=== PATIENT | female | born 1935 | race Caucasian/White ===

== ENCOUNTER 2021-08-05 02:07 | Emergency (ER) | payer OTHER, SELFPAY ==
[~2021-08-05] VITALS: Ht 167.6 cm; Wt 54.4 kg
[2021-08-05 02:07] VITALS: BP_SYST 147
[2021-08-05] MEDS ORDERED: ACETAMINOPHEN 500 MG TABLET PO ONE (02:30)
[2021-08-05] MEDS ORDERED: cephALEXin 500 MG CAPSULE PO ONE (05:45)
[2021-08-05] MEDS ORDERED: CEPH500C2 PO (05:59)
[2021-08-05 06:42] VITALS: BP_SYST 99
[2021-08-05 07:39] LABS: BILIRUBIN,URINE NEGATIVE (NEGATIVE); CLARITY/URINE SL CLOUDY (CLEAR); COLOR,URINE YELLOW (YELLOW); GLUCOSE,URINE NEGATIVE (NEGATIVE); KETONES,URINE NEGATIVE (NEGATIVE); LEUKOCYTE ESTERASE ,URINE 3+ (NEGATIVE); NITRITE, URINE POSITIVE (NEGATIVE); PROTEIN URINE TRACE (NEGATIVE); UROBILINOGEN,URINE 0.2 (0.2-1.0)
[2021-08-05 07:59] LABS: BLOOD, URINE TRACE (NEGATIVE)
[2021-08-05 09:02] LABS: BACTERIA,URINE FEW /HPF (None Seen); URINE AMORPHOUS URATE 2+ /HPF (None Seen); WBC,URINE 20-50 /HPF (0-3)
== END 2021-08-05 06:41 | disposition home or self-care (01) ==
LOC: SED 02:07
DX: S09.90XA Unspecified injury of head, initial encounter (principal); M25.551 Pain in right hip; M25.552 Pain in left hip; Z79.899 Other long term (current) drug therapy; Z20.822 Contact with and (suspected) exposure to COVID-19; W01.0XXA Fall on same level from slipping, tripping and stumbling without subsequent striking against object, initial encounter; Y93.89 Activity, other specified; Y92.89 Other specified places as the place of occurrence of the external cause; Y99.8 Other external cause status
CPT/HCPCS: 36415; 70450-TC; 72192-TC; 73590-TC; 76376; 81000; 87086; 99285

== ENCOUNTER 2021-09-09 16:18 | Inpatient (IN) | payer OTHER, SELFPAY ==
[~2021-09-09] VITALS: Ht 180.3 cm; Wt 45.8 kg
[~2021-09-09 16:18] MED LIST: CEPH-548 PO
[2021-09-09 16:25] VITALS: BP_SYST 166
[2021-09-09] MEDS ORDERED: DONE10TA4 PO (16:35)
[2021-09-09] MEDS ORDERED: DIVA125T2 PO (16:35)
[2021-09-09] MEDS ORDERED: MIRT-115 PO (16:39)
[2021-09-09] MEDS ORDERED: LISI40TA15 PO (16:39)
[2021-09-09] MEDS ORDERED: LORA0.5T PO (16:39)
[2021-09-09 17:30] LABS: ANION GAP 6 (5-15); CALCIUM 8.9 mg/dL (8.4-11.0); CHLORIDE 102 mmol/L (98-107); CREATININE 0.82 mg/dL (0.55-1.30); GLUCOSE 92 mg/dL (70-99); POTASSIUM 4.4 mmol/L (3.5-5.1); SODIUM SERUM 136 mmol/L (136-145); UREA NITROGEN, BLOOD 25 mg/dL (8-21)
[2021-09-09 17:36] LABS: ALBUMIN 3.5 g/dL (3.4-4.8); ASPARTATE AMINOTRANSFERASE 16 U/L (10-37); LACTATE DEHYDROGENASE 160 U/L (81-234); PROTHROMBIN TIME 10.9 SECS (9.5-12.5); TOTAL BILIRUBIN 0.6 mg/dL (0.0-1.0)
[2021-09-09 17:45] LABS: BASOPHILS % (AUTO) 0.6 % (0.0-2.0); EOSINOPHILS # (AUTO) 0.1 K/uL (0.0-0.4); EOSINOPHILS % (AUTO) 0.8 % (0.0-4.0); HEMATOCRIT 39.3 % (36-48); HEMOGLOBIN 13.4 g/dL (12.0-16.0); LYMPHOCYTES # (AUTO) 1.5 K/uL (1.0-5.5); LYMPHOCYTES % (AUTO) 23.4 % (20.5-51.5); MEAN CORPUSCULAR HEMOGLOBIN 31 pg (27-31); MEAN CORPUSCULAR HGB CONC 34 % (32-36); MEAN CORPUSCULAR VOLUME 91 fL (79.0-98.0); MONOCYTES # (AUTO) 0.6 K/uL (0.0-1.0); MONOCYTES % (AUTO) 10.4 % (1.7-9.3); NEUTROPHILS % (AUTO) 64.8 % (40.0-70.0); PLATELET COUNT (AUTO) 176 K/uL (130-430); RED CELL DISTRIBUTION WIDTH 14.5 % (9.0-15.0); WHITE BLOOD COUNT (AUTO) 6.2 K/uL (4.8-10.8)
[2021-09-09 17:48] LABS: C-REACTIVE PROTEIN QUANT 3.3 mg/dL (0-0.5)
[2021-09-09 17:53] LABS: ALANINE AMINOTRANSFERASE 19 U/L (12-78)
[2021-09-09 18:23] LABS: BILIRUBIN,URINE NEGATIVE (NEGATIVE); BLOOD, URINE 2+ (NEGATIVE); CLARITY/URINE CLOUDY (CLEAR); COLOR,URINE YELLOW (YELLOW); GLUCOSE,URINE NEGATIVE (NEGATIVE); KETONES,URINE NEGATIVE (NEGATIVE); LEUKOCYTE ESTERASE ,URINE 2+ (NEGATIVE); NITRITE, URINE POSITIVE (NEGATIVE); PROTEIN URINE NEGATIVE (NEGATIVE); UROBILINOGEN,URINE 0.2 (0.2-1.0)
[2021-09-09 18:35] LABS: BACTERIA,URINE MANY /HPF (None Seen); MUCUS,URINE 1+ /LPF (None Seen); WBC,URINE 80-100 /HPF (0-3)
[2021-09-09] MEDS ORDERED: NACL 0.9% 1,000 ML IV ONE (20:00)
[2021-09-09] MEDS ORDERED: OSELTAMIVIR PHOSPHATE 75 MG CAPSULE PO ONE (20:00)
[2021-09-09] MEDS ORDERED: cefTRIAXone 1 GM in D5W 50 ML IV ONE (20:00)
[2021-09-09] MEDS ORDERED: cefTRIAXone 1 GM VIAL ONE (20:04)
[2021-09-09] MEDS ORDERED: CIPROFLOXACIN HCL 500 MG TABLET PO ONE (20:45)
[2021-09-09] MEDS ORDERED: D5LR 500 ML IV ONE (20:45)
[2021-09-09] MEDS ORDERED: ACETAMINOPHEN 325 MG TABLET PO PRN (21:15)
[2021-09-09] MEDS ORDERED: ENOXAPARIN SODIUM 40 MG/0.4 ML SYRINGE SUBCUT ONE (21:15)
[2021-09-09 22:54] VITALS: BP_SYST 131
[2021-09-10] MEDS: DIPHENHYDRAMINE INJ 50 MG/ML VIAL IVP PRN ×2 (00:40→21:42)
[2021-09-10 03:20] VITALS: BP_SYST 135
[2021-09-10 06:36] LABS: EOSINOPHILS % (AUTO) 0.3 % (0.0-4.0); HEMATOCRIT 42.8 % (36-48); HEMOGLOBIN 14.4 g/dL (12.0-16.0); LYMPHOCYTES # (AUTO) 1.8 K/uL (1.0-5.5); LYMPHOCYTES % (AUTO) 26.6 % (20.5-51.5); MEAN CORPUSCULAR HEMOGLOBIN 31 pg (27-31); MEAN CORPUSCULAR HGB CONC 34 % (32-36); MEAN CORPUSCULAR VOLUME 91 fL (79.0-98.0); MONOCYTES # (AUTO) 0.8 K/uL (0.0-1.0); MONOCYTES % (AUTO) 12.3 % (1.7-9.3); PLATELET COUNT (AUTO) 179 K/uL (130-430); RED CELL DISTRIBUTION WIDTH 14.2 % (9.0-15.0); WHITE BLOOD COUNT (AUTO) 6.7 K/uL (4.8-10.8)
[2021-09-10 07:08] LABS: ANION GAP 6 (5-15); CALCIUM 9.1 mg/dL (8.4-11.0); CHLORIDE 101 mmol/L (98-107); GLUCOSE 100 mg/dL (70-99); POTASSIUM 4.2 mmol/L (3.5-5.1); SODIUM SERUM 136 mmol/L (136-145); UREA NITROGEN, BLOOD 20 mg/dL (8-21)
[2021-09-10 07:33] LABS: BASOPHILS % (AUTO) 0.3 % (0.0-2.0); NEUTROPHILS # (AUTO) 4.1 K/uL (1.8-7.7); NEUTROPHILS % (AUTO) 60.5 % (40.0-70.0)
[2021-09-10] MEDS: OSELTAMIVIR PHOSPHATE 75 MG CAPSULE PO SCH ×2 (08:42→21:41)
[2021-09-10] MEDS: lisinopriL 20 MG TABLET PO SCH (08:42)
[2021-09-10] MEDS: MIRTAZAPINE 15 MG TABLET PO SCH (08:42)
[2021-09-10] MEDS: LORazepam 1 MG TABLET PO SCH ×2 (08:43→21:44)
[2021-09-10] MEDS: DIVALPROEX SODIUM 125 MG CAP.(DEPAKOTE SPRINKLE) PO SCH (08:43)
[2021-09-10 12:59] VITALS: BP_SYST 147
[2021-09-10 16:34] VITALS: BP_SYST 139
[2021-09-10] MEDS: QUEtiapine FUMARATE 25 MG TABLET PO SCH (17:19)
[2021-09-10 20:00] VITALS: BP_SYST 128; BP_SYST 132
[2021-09-10] MEDS: cefTRIAXone 1 GM IVPB PREMIX 50 ML IV SCH (21:40)
[2021-09-10] MEDS: DONEPEZIL HCL 5 MG TABLET (ARICEPT) PO SCH (21:41)
[2021-09-10] MEDS: ENOXAPARIN SODIUM 40 MG/0.4 ML SYRINGE SUBCUT SCH (21:43)
[2021-09-11] MEDS: DIPHENHYDRAMINE INJ 50 MG/ML VIAL IVP PRN ×2 (03:15→22:54)
[2021-09-11 07:55] LABS: EOSINOPHILS % (AUTO) 0.4 % (0.0-4.0); HEMATOCRIT 39.5 % (36-48); HEMOGLOBIN 13.2 g/dL (12.0-16.0); LYMPHOCYTES # (AUTO) 0.7 K/uL (1.0-5.5); LYMPHOCYTES % (AUTO) 16.8 % (20.5-51.5); MEAN CORPUSCULAR HEMOGLOBIN 31 pg (27-31); MEAN CORPUSCULAR HGB CONC 34 % (32-36); MEAN CORPUSCULAR VOLUME 91 fL (79.0-98.0); MONOCYTES # (AUTO) 0.5 K/uL (0.0-1.0); MONOCYTES % (AUTO) 10.2 % (1.7-9.3); NEUTROPHILS # (AUTO) 3.2 K/uL (1.8-7.7); NEUTROPHILS % (AUTO) 71.6 % (40.0-70.0); PLATELET COUNT (AUTO) 172 K/uL (130-430); RED BLOOD CELL COUNT(AUTO) 4.34 MIL/uL (4.2-6.2); WHITE BLOOD COUNT (AUTO) 4.5 K/uL (4.8-10.8)
[2021-09-11 08:43] VITALS: BP_SYST 164
[2021-09-11] MEDS: MIRTAZAPINE 15 MG TABLET PO SCH (09:06)
[2021-09-11] MEDS: LORazepam 1 MG TABLET PO SCH ×2 (09:06→21:04)
[2021-09-11] MEDS: OSELTAMIVIR PHOSPHATE 75 MG CAPSULE PO SCH ×2 (09:06→21:04)
[2021-09-11] MEDS: lisinopriL 20 MG TABLET PO SCH (09:06)
[2021-09-11] MEDS: DIVALPROEX SODIUM 125 MG CAP.(DEPAKOTE SPRINKLE) PO SCH (09:07)
[2021-09-11 09:45] LABS: ANION GAP 4 (5-15); CALCIUM 8.5 mg/dL (8.4-11.0); CHLORIDE 103 mmol/L (98-107); CREATININE 0.77 mg/dL (0.55-1.30); GLUCOSE 110 mg/dL (70-99); POTASSIUM 3.7 mmol/L (3.5-5.1); SODIUM SERUM 137 mmol/L (136-145); UREA NITROGEN, BLOOD 22 mg/dL (8-21)
[2021-09-11 12:00] VITALS: BP_SYST 145
[2021-09-11 16:25] VITALS: BP_SYST 148
[2021-09-11] MEDS: QUEtiapine FUMARATE 25 MG TABLET PO SCH (19:40)
[2021-09-11 20:14] VITALS: BP_SYST 159
[2021-09-11] MEDS: cefTRIAXone 1 GM IVPB PREMIX 50 ML IV SCH (20:38)
[2021-09-11] MEDS: DONEPEZIL HCL 5 MG TABLET (ARICEPT) PO SCH (21:04)
[2021-09-11] MEDS: ENOXAPARIN SODIUM 40 MG/0.4 ML SYRINGE SUBCUT SCH (21:05)
[2021-09-12 00:46] VITALS: BP_SYST 165
[2021-09-12] MEDS: DIVALPROEX SODIUM 125 MG CAP.(DEPAKOTE SPRINKLE) PO SCH ×2 (09:46→20:30)
[2021-09-12] MEDS: MIRTAZAPINE 15 MG TABLET PO SCH (09:47)
[2021-09-12] MEDS: LORazepam 1 MG TABLET PO SCH ×2 (09:47→20:36)
[2021-09-12] MEDS: lisinopriL 20 MG TABLET PO SCH (09:48)
[2021-09-12] MEDS: OSELTAMIVIR PHOSPHATE 75 MG CAPSULE PO SCH ×2 (09:48→20:30)
[2021-09-12 11:32] VITALS: BP_SYST 157
[2021-09-12 15:35] VITALS: BP_SYST 149
[2021-09-12] MEDS: DIPHENHYDRAMINE INJ 50 MG/ML VIAL IVP PRN ×2 (15:39→20:56)
[2021-09-12] MEDS ORDERED: D5LR 500 ML IV ONE (16:30)
[2021-09-12] MEDS ORDERED: cloNIDine HCL 0.1 MG TABLET PO PRN (16:30)
[2021-09-12] MEDS: QUEtiapine FUMARATE 25 MG TABLET PO SCH (17:46)
[2021-09-12 19:00] VITALS: BP_SYST 145
[2021-09-12 20:00] VITALS: BP_SYST 145
[2021-09-12] MEDS: DONEPEZIL HCL 5 MG TABLET (ARICEPT) PO SCH (20:30)
[2021-09-12] MEDS: cefTRIAXone 1 GM IVPB PREMIX 50 ML IV SCH (20:30)
[2021-09-12] MEDS: ENOXAPARIN SODIUM 40 MG/0.4 ML SYRINGE SUBCUT SCH (20:38)
[2021-09-13] VITALS: BP_SYST 147
[2021-09-13] MEDS ORDERED: cloNIDine HCL 0.1 MG TABLET PO PRN (02:45)
[2021-09-13] MEDS ORDERED: DIPHENHYDRAMINE INJ 50 MG/ML VIAL IVP ONE (02:45)
[2021-09-13] MEDS: MEGESTROL ACETATE 400 MG/10 ML UDC PO SCH (11:08)
[2021-09-13] MEDS: OSELTAMIVIR PHOSPHATE 75 MG CAPSULE PO SCH ×2 (11:09→20:10)
[2021-09-13] MEDS: lisinopriL 20 MG TABLET PO SCH (11:09)
[2021-09-13] MEDS: LORazepam 1 MG TABLET PO SCH ×2 (11:09→20:10)
[2021-09-13] MEDS: DIVALPROEX SODIUM 125 MG CAP.(DEPAKOTE SPRINKLE) PO SCH ×2 (11:10→20:10)
[2021-09-13] MEDS ORDERED: MEGE400O4 PO (13:23)
[2021-09-13] MEDS ORDERED: DEPS125 PO (13:23)
[2021-09-13 13:36] VITALS: BP_SYST 162
[2021-09-13] MEDS ORDERED: CIPR250T4 PO (13:38)
[2021-09-13] MEDS ORDERED: LACT1CAP69 PO (13:39)
[2021-09-13] MEDS: DIPHENHYDRAMINE INJ 50 MG/ML VIAL IVP PRN (17:15)
[2021-09-13] MEDS: QUEtiapine FUMARATE 25 MG TABLET PO SCH (17:23)
[2021-09-13 18:15] VITALS: BP_SYST 136
[2021-09-13 20:00] VITALS: BP_SYST 146
[2021-09-13] MEDS: cefTRIAXone 1 GM IVPB PREMIX 50 ML IV SCH (20:09)
[2021-09-13] MEDS: DONEPEZIL HCL 5 MG TABLET (ARICEPT) PO SCH (20:10)
[2021-09-13] MEDS: ENOXAPARIN SODIUM 40 MG/0.4 ML SYRINGE SUBCUT SCH (20:11)
[2021-09-14 01:36] VITALS: BP_SYST 166
[2021-09-14 08:30] VITALS: BP_SYST 150
[2021-09-14] MEDS: DIVALPROEX SODIUM 125 MG CAP.(DEPAKOTE SPRINKLE) PO SCH ×2 (08:42→21:00)
[2021-09-14] MEDS: MEGESTROL ACETATE 400 MG/10 ML UDC PO SCH (08:42)
[2021-09-14] MEDS: OSELTAMIVIR PHOSPHATE 75 MG CAPSULE PO SCH ×2 (08:43→21:00)
[2021-09-14] MEDS: LORazepam 1 MG TABLET PO SCH ×2 (08:43→21:00)
[2021-09-14] MEDS: lisinopriL 20 MG TABLET PO SCH (08:44)
[2021-09-14 12:00] VITALS: BP_SYST 162
[2021-09-14] MEDS: D5LR 1,000 ML IV SCH (15:49)
[2021-09-14] MEDS: DIPHENHYDRAMINE INJ 50 MG/ML VIAL IVP PRN ×2 (15:58→20:00)
[2021-09-14 17:00] VITALS: BP_SYST 154
[2021-09-14] MEDS: QUEtiapine FUMARATE 25 MG TABLET PO SCH (17:51)
[2021-09-14 20:00] VITALS: BP_SYST 151
[2021-09-14] MEDS: cefTRIAXone 1 GM IVPB PREMIX 50 ML IV SCH (20:00)
[2021-09-14] MEDS: ENOXAPARIN SODIUM 40 MG/0.4 ML SYRINGE SUBCUT SCH (20:34)
[2021-09-14] MEDS: DONEPEZIL HCL 5 MG TABLET (ARICEPT) PO SCH (21:00)
[2021-09-15] MEDS: D5LR 1,000 ML IV SCH ×2 (03:02→20:25)
[2021-09-15] MEDS: DIPHENHYDRAMINE INJ 50 MG/ML VIAL IVP PRN ×3 (05:37→17:16)
[2021-09-15 08:30] VITALS: BP_SYST 159
[2021-09-15] MEDS: lisinopriL 20 MG TABLET PO SCH (08:55)
[2021-09-15] MEDS: MEGESTROL ACETATE 400 MG/10 ML UDC PO SCH (08:55)
[2021-09-15] MEDS: DIVALPROEX SODIUM 125 MG CAP.(DEPAKOTE SPRINKLE) PO SCH ×2 (08:55→20:21)
[2021-09-15] MEDS: LORazepam 1 MG TABLET PO SCH ×2 (08:56→20:21)
[2021-09-15 15:19] VITALS: BP_SYST 169
[2021-09-15 15:31] VITALS: BP_SYST 169
[2021-09-15 16:00] VITALS: BP_SYST 155
[2021-09-15] MEDS: QUEtiapine FUMARATE 25 MG TABLET PO SCH (17:15)
[2021-09-15 20:00] VITALS: BP_SYST 158
[2021-09-15] MEDS: cefTRIAXone 1 GM IVPB PREMIX 50 ML IV SCH (20:00)
[2021-09-15] MEDS: DONEPEZIL HCL 5 MG TABLET (ARICEPT) PO SCH (20:21)
[2021-09-15] MEDS: ENOXAPARIN SODIUM 40 MG/0.4 ML SYRINGE SUBCUT SCH (20:24)
[2021-09-15 22:00] VITALS: BP_SYST 158
== END 2021-09-15 20:30 | DRG 193 ==
LOC: SED 16:18 → SMU 20:34
PROVIDERS: ADMIT Internal Medicine; ATTEND Internal Medicine
DX: J10.1 Influenza due to other identified influenza virus with other respiratory manifestations (principal); G93.41 Metabolic encephalopathy; N39.0 Urinary tract infection, site not specified; F03.91 Unspecified dementia, unspecified severity, with behavioral disturbance; F32.A Depression, unspecified; C50.919 Malignant neoplasm of unspecified site of unspecified female breast; Z66 Do not resuscitate; E78.5 Hyperlipidemia, unspecified; M81.0 Age-related osteoporosis without current pathological fracture; Z20.822 Contact with and (suspected) exposure to COVID-19; E86.0 Dehydration; I10 Essential (primary) hypertension; R13.10 Dysphagia, unspecified; Z85.3 Personal history of malignant neoplasm of breast; Z51.5 Encounter for palliative care; Z79.899 Other long term (current) drug therapy
CPT/HCPCS: 36415; 71045; 80048; 80053; 81000; 82550; 83605; 83615; 83880; 84484; 85025; 85379; 85384; 85610-TC; 85730-TC; 86140; 86710; 87040-TC; 87081; 87086; 92610-GN; 93005; 96365; 97110-GP; 97163-GP; 97530-GP; 99285; G9035; J0696; J1200; J1650